=== PATIENT | female | born 1930 | race Caucasian/White ===

== ENCOUNTER → 2018-11-23 | Outpatient (CLI) | payer MEDICARE ==
[~2018-11-23] MED LIST: ACET-1600 PO; ALBU6.7H INH; AMLO-150 PO; ASPI-496 PO; ATOR40TA78 PO; BENZ1LOZ51 PO; BETA15CR5 TP; BUPR150T20 PO; CALC-471 PO; CALC1CAP8 PO; CARV-39 PO; CARV6.252 PO; CYAN1TAB29 PO; ESTR42.53 VG; FLAX100013 PO; FLUT10SP NS; FOLI-17 PO; FOLI0.8T2 PO; FURO20TA3 PO; GLUC15006 PO; INSU100I13 SC; INSU100V11 SC; IPRA4AER INH; IRON PO; MAGN400T7 PO; MAGNESIUM PO; MELA1TAB8 PO; MOME13HF2 INH; MULT-717 PO; NORT10CA PO; OMEGA Q PLUS PO; OMEP-110 PO; OXYB5TAB7 PO; OXYGEN NS; POLY17PO5 PO; PRAV40TA2 PO; SENN-25 PO; SERT100T32 PO; TRAZ-137 PO; [UNRECOGNIZED DRUG - OTHER] EACHEYE; alkalol NS; tylenol PO
[2018-11-23 15:10] LABS: BASOPHILS # (AUTO) 0.03 x10^3/uL (0-0.1); BASOPHILS % (AUTO) 0 % (0-1); EOSINOPHILS # (AUTO) 0.16 x10^3/uL (0-0.4); EOSINOPHILS % (AUTO) 2 % (1-7); HCT (SEDRATE) 38.9 % (34.6-47.8); LYMPHOCYTES # (AUTO) 1.44 x10^3/uL (1-3.4); LYMPHOCYTES % (AUTO) 21 % (22-44); MD NO; MEAN CORPUSCULAR HEMOGLOBIN 31.1 pg (27.0-34.8); MEAN CORPUSCULAR HGB CONC 32.1 g/dL (32.4-35.8); MONOCYTES # (AUTO) 0.55 x10^3/uL (0.2-0.8); MONOCYTES % (AUTO) 8 % (2-9); NEUTROPHILS # (AUTO) 4.57 x10^3/uL (1.8-6.8); NEUTROPHILS % (AUTO) 68 % (42-75); PLATELET COUNT 261 x10^3/uL (130-400); RED BLOOD COUNT 4.03 x10^6/uL (3.82-5.3); RED CELL DISTRIBUTION WIDTH 13.3 % (9.6-15.2)
[2018-11-23 15:21] LABS: CALCIUM 9.4 mg/dL (8.5-10.1); CHLORIDE 104 mmol/L (98-107)
[2018-11-23 15:26] LABS: ALANINE AMINOTRANSFERASE 18 U/L (12-78); ALBUMIN 3.5 g/dL (3.4-5.0); ALKALINE PHOSPHATASE 68 U/L (45-117); ANION GAP 6 mmol/L (5-15); BILIRUBIN,TOTAL 0.7 mg/dL (0.2-1.0); CREATININE 1.58 mg/dL (0.55-1.02); TOTAL PROTEIN 7.4 g/dL (6.4-8.2)
[2018-11-23 15:27] LABS: INTERNATIONAL NORMALIZED RATIO 0.98 (0.93-1.1); PROTHROMBIN TIME 10.3 Seconds (9.6-11.5)
[2018-11-23 15:31] LABS: CULTURE INDICATED? YES; MICROSCOPIC INDICATED
== END | disposition home or self-care (01) ==
LOC: STAR 13:26
PROVIDERS: ATTEND Orthopaedic Surgery Orthopaedic Surgery of the Spine
DX: T85.898A Other specified complication of other internal prosthetic devices, implants and grafts, initial encounter (principal); I25.2 Old myocardial infarction; Y83.8 Other surgical procedures as the cause of abnormal reaction of the patient, or of later complication, without mention of misadventure at the time of the procedure; Y92.89 Other specified places as the place of occurrence of the external cause
CPT/HCPCS: 36415; 71046; 80053; 81001; 85025; 85610; 85651; 85730; 87077; 87086; 87186; 93005

== ENCOUNTER 2018-12-04 07:18 | Inpatient (IN) | payer MEDICARE ==
[~2018-12-04] VITALS: Ht 165.1 cm; Wt 85.2 kg
[2018-12-04] MEDS ORDERED: VANCOMYCIN PER PHARMACY MC STA (08:53)
[2018-12-04 09:05] VITALS: BP 164/75
[2018-12-04] MEDS ORDERED: SODIUM CHLORIDE 0.9% 1,000 ML IV SCH (09:17)
[2018-12-04] MEDS ORDERED: PHARMACOKINETIC CONSULTATION MC ONE (09:30)
[2018-12-04] MEDS ORDERED: ACETAMINOPHEN 500 MG TABLET PO ONE (09:30)
[2018-12-04] MEDS ORDERED: VANCOMYCIN 1,900 MG in SODIUM CHLORIDE 0.9% 250 ML IV ONE (09:30)
[2018-12-04] MEDS ORDERED: TRANEXAMIC ACID 100 MG/ML, 10ML ONE (10:32)
[2018-12-04] MEDS ORDERED: KETOROLAC 60 MG/2 ML ONE (10:32)
[2018-12-04] MEDS ORDERED: MORPHINE SULFATE 4 MG/ML, 1ML ONE (10:33)
[2018-12-04] MEDS ORDERED: ROPIvacaine/PF 0.2%, 20 ML ONE (10:33)
[2018-12-04] MEDS ORDERED: EPINEPHRINE 1 MG/ML, 1ML ONE (10:33)
[2018-12-04] MEDS ORDERED: FENTANYL PF 100 MCG/2ML ONE ×2 (10:35→13:33)
[2018-12-04] MEDS ORDERED: VASOPRESSIN 20 UNIT/ML, 1ML ONE (11:02)
[2018-12-04] MEDS ORDERED: VANCOMYCIN 1,000 MG ONE (12:46)
[2018-12-04] MEDS ORDERED: ONDANSETRON 2MG/ML, 2ML ONE (12:59)
[2018-12-04] MEDS ORDERED: PROPOFOL 10 MG/ML, 20ML ONE (12:59)
[2018-12-04] MEDS ORDERED: GLYCOPYRROLATE 0.2MG/1ML, 5ML ONE (12:59)
[2018-12-04] MEDS ORDERED: ROCURONIUM 10MG/ML,5ML ONE (12:59)
[2018-12-04] MEDS ORDERED: SUCCINYLCHOLINE 20 MG/ML, 10ML ONE (12:59)
[2018-12-04] MEDS ORDERED: CEFAZOLIN 1,000 MG ONE (12:59)
[2018-12-04] MEDS ORDERED: DEXAMETHASONE 4 MG/ML, 1ML ONE (12:59)
[2018-12-04] MEDS ORDERED: NEOSTIGMINE 1 MG/ML, 10ML ONE (12:59)
[2018-12-04] MEDS ORDERED: OXYcodone 5 MG/5 ML ORAL.SOL UDC ONE (13:33)
[2018-12-04] MEDS ORDERED: PROMETHAZINE 25 MG/ML, 1ML ONE (13:36)
[2018-12-04] MEDS: FENTANYL PF 100 MCG/2ML IV PRN ×3 (13:47→14:03)
[2018-12-04] MEDS ORDERED: HYDROmorphone 2 MG/ML, 1ML ONE (13:58)
[2018-12-04] MEDS ORDERED: LABETALOL 5MG/ML, 20ML IV PRN (14:00)
[2018-12-04] MEDS ORDERED: hydrALAzine 20 MG/ML, 1ML IV PRN (14:00)
[2018-12-04] MEDS ORDERED: HYDROmorphone 2 MG/ML, 1ML IVPush PRN (14:00)
[2018-12-04] MEDS ORDERED: PROMETHAZINE 25 MG/ML, 1ML IV PRN (14:00)
[2018-12-04] MEDS ORDERED: METOPROLOL 1 MG/ML, 5ML IV PRN (14:00)
[2018-12-04] MEDS ORDERED: ONDANSETRON 2MG/ML, 2ML IV PRN (14:00)
[2018-12-04] MEDS ORDERED: OXYcodone 5 MG/5 ML ORAL.SOL UDC PO PRN (14:00)
[2018-12-04] MEDS ORDERED: DIAZEPAM 5 MG TABLET PO PRN (15:30)
[2018-12-04] MEDS ORDERED: METOCLOPRAMIDE 5 MG/ML, 2ML IVPush PRN (15:30)
[2018-12-04] MEDS ORDERED: DEXAMETHASONE 4 MG/ML, 1ML IVPush PRN (15:30)
[2018-12-04] MEDS ORDERED: KETOROLAC 30 MG/1 ML IVPush PRN (15:30)
[2018-12-04] MEDS ORDERED: ALUMINUM/MAG/SIMETHICONE 30 ML UDC PO PRN (15:30)
[2018-12-04] MEDS ORDERED: DIPHENHYDRAMINE 50 MG/ML, 1ML IVPush PRN (15:30)
[2018-12-04] MEDS ORDERED: ACETAMINOPHEN 500 MG TABLET PO PRN ×2 (15:30)
[2018-12-04] MEDS ORDERED: MORPHINE SULFATE 4 MG/ML, 1ML IVPush PRN (15:30)
[2018-12-04] MEDS ORDERED: MAGNESIUM HYDROXIDE 8%, 30ML UDC PO PRN (15:30)
[2018-12-04] MEDS ORDERED: ZOLPIDEM 5MG TABLET PO PRN (15:30)
[2018-12-04] MEDS: POTASSIUM CHLORIDE 20 MEQ in SODIUM CHLORIDE 0.9% 1,000 ML IV SCH (15:30)
[2018-12-04] MEDS ORDERED: PROMETHAZINE 25 MG/ML, 1ML IM PRN (15:30)
[2018-12-04] MEDS ORDERED: DIPHENHYDRAMINE 25 MG CAPSULE PO PRN (15:30)
[2018-12-04] MEDS ORDERED: LORazepam 2 MG/ML, 1ML IV PRN (15:30)
[2018-12-04] MEDS ORDERED: LORazepam 1MG TABLET PO PRN (15:30)
[2018-12-04] MEDS ORDERED: ONDANSETRON ODT 4 MG PO PRN (15:30)
[2018-12-04] MEDS ORDERED: METOCLOPRAMIDE 10MG TABLET PO PRN (15:30)
[2018-12-04] MEDS ORDERED: ONDANSETRON 2MG/ML, 2ML IVPush PRN (15:30)
[2018-12-04] MEDS ORDERED: POLYETHYLENE GLYCOL 17 GM PACKET PO PRN ×2 (15:30→16:00)
[2018-12-04] MEDS ORDERED: SENNA/DOCUSATE TABLET PO PRN (15:30)
[2018-12-04] MEDS ORDERED: PROMETHAZINE 25 MG SUPP PR PRN (15:30)
[2018-12-04] MEDS ORDERED: SCOPOLAMINE PATCH, 1.5MG PATCH.TD72 TD SCH (15:30)
[2018-12-04] MEDS ORDERED: BISACODYL 10 MG SUPP PR PRN (15:30)
[2018-12-04] MEDS ORDERED: SODIUM CHLORIDE 0.9% 1,000ML IVBOLUS PRN (16:00)
[2018-12-04] MEDS ORDERED: ARTIFICIAL TEARS 15 DROP/ML BOTTLE OP SCH ×2 (16:00)
[2018-12-04] MEDS: ALBUTEROL SULFATE 2.5 MG/3 ML NPPB SCH ×2 (16:00→22:00)
[2018-12-04] MEDS: OXYcodone/APAP 10/325MG TABLET PO PRN ×2 (16:59→18:02)
[2018-12-04] MEDS: CALCIUM/VITAMIN D3 250-125 TABLET PO SCH ×2 (16:59→21:40)
[2018-12-04] MEDS: CARVEDILOL 25 MG TABLET PO SCH (18:20)
[2018-12-04 18:21] VITALS: BP 170/96
[2018-12-04 20:44] VITALS: BP 147/88
[2018-12-04] MEDS ORDERED: BUPROPION SR 150 MG TABLET PO SCH (21:00)
[2018-12-04] MEDS: BUDESONIDE 0.5 MG/2 ML INHA NPPB SCH (21:00)
[2018-12-04] MEDS: CEFAZOLIN PMX 2GM/50ML 50 ML IVPB SCH (21:40)
[2018-12-04] MEDS: OMEGA-3/FISH OIL CAPSULE PO SCH (21:41)
[2018-12-04] MEDS: NORTRIPTYLINE 10 MG CAPSULE PO SCH (21:42)
[2018-12-04] MEDS: BUPROPION SR 150 MG TABLET PO SCH (21:42)
[2018-12-04] MEDS: ATORVASTATIN 40 MG TABLET PO SCH (21:43)
[2018-12-04] MEDS: DOCUSATE 100 MG CAPSULE PO SCH (21:48)
[2018-12-04] MEDS: SODIUM CHLORIDE FLUSH 10ML SYR IVF SCH (21:49)
[2018-12-04 23:55] VITALS: BP 157/92
[2018-12-05] MEDS: POTASSIUM CHLORIDE 20 MEQ in SODIUM CHLORIDE 0.9% 1,000 ML IV SCH ×3 (01:36→21:48)
[2018-12-05] MEDS: ALBUTEROL SULFATE 2.5 MG/3 ML NPPB SCH ×3 (04:00→22:00)
[2018-12-05 04:15] VITALS: BP 149/77
[2018-12-05 04:55] LABS: BASOPHILS # (AUTO) 0.01 x10^3/uL (0-0.1); BASOPHILS % (AUTO) 0 % (0-1); EOSINOPHILS % (AUTO) 0 % (1-7); LYMPHOCYTES # (AUTO) 1.05 x10^3/uL (1-3.4); LYMPHOCYTES % (AUTO) 8 % (22-44); MD NO; MEAN CORPUSCULAR HEMOGLOBIN 31.5 pg (27.0-34.8); MEAN CORPUSCULAR HGB CONC 32.1 g/dL (32.4-35.8); MONOCYTES # (AUTO) 0.73 x10^3/uL (0.2-0.8); MONOCYTES % (AUTO) 6 % (2-9); NEUTROPHILS # (AUTO) 10.89 x10^3/uL (1.8-6.8); NEUTROPHILS % (AUTO) 86 % (42-75); PLATELET COUNT 223 x10^3/uL (130-400); RED BLOOD COUNT 3.63 x10^6/uL (3.82-5.3); RED CELL DISTRIBUTION WIDTH 13.4 % (9.6-15.2)
[2018-12-05] MEDS: CEFAZOLIN PMX 2GM/50ML 50 ML IVPB SCH (05:06)
[2018-12-05] MEDS: CARVEDILOL 25 MG TABLET PO SCH ×2 (05:06→18:04)
[2018-12-05] MEDS: ASPIRIN 325 MG TABLET EC PO SCH ×2 (05:07→18:04)
[2018-12-05] MEDS: OMEPRAZOLE 20 MG CAPSULE.DR PO SCH (05:07)
[2018-12-05] MEDS: OXYcodone IR 5MG TABLET PO PRN ×2 (05:07→10:36)
[2018-12-05 06:42] VITALS: BP 109/66
[2018-12-05] MEDS: SODIUM CHLORIDE FLUSH 10ML SYR IVF SCH ×2 (09:00→20:36)
[2018-12-05] MEDS: BUDESONIDE 0.5 MG/2 ML INHA NPPB SCH ×2 (09:00→21:00)
[2018-12-05] MEDS: MAGNESIUM OXIDE 400 MG TABLET PO SCH (10:36)
[2018-12-05] MEDS: FOLIC ACID 1 MG TABLET PO SCH (10:36)
[2018-12-05] MEDS: OMEGA-3/FISH OIL CAPSULE PO SCH ×2 (10:36→20:35)
[2018-12-05] MEDS: CALCIUM/VITAMIN D3 250-125 TABLET PO SCH ×3 (10:36→20:35)
[2018-12-05] MEDS: MULTIVITAMINS/MINERALS TABLET PO SCH (10:36)
[2018-12-05] MEDS: DOCUSATE 100 MG CAPSULE PO SCH ×2 (10:36→20:35)
[2018-12-05] MEDS: PSYLLIUM PACKET PO SCH (10:36)
[2018-12-05] MEDS: FERROUS SULFATE 325 MG TABLET PO SCH (10:36)
[2018-12-05] MEDS: INSULIN GLARGINE 100 UNITS/ML, PEN SQ-INSULIN SCH (11:45)
[2018-12-05 12:25] VITALS: BP 109/55
[2018-12-05 18:01] VITALS: BP 137/63
[2018-12-05 20:12] VITALS: BP 124/48
[2018-12-05] MEDS: BUPROPION SR 150 MG TABLET PO SCH (20:34)
[2018-12-05] MEDS: NORTRIPTYLINE 10 MG CAPSULE PO SCH (20:34)
[2018-12-05] MEDS: ATORVASTATIN 40 MG TABLET PO SCH (20:35)
[2018-12-05] MEDS: OXYcodone/APAP 10/325MG TABLET PO PRN (23:01)
[2018-12-06 00:38] VITALS: BP 165/80
[2018-12-06] MEDS: OXYcodone/APAP 10/325MG TABLET PO PRN ×2 (02:09→06:11)
[2018-12-06] MEDS: ALBUTEROL SULFATE 2.5 MG/3 ML NPPB SCH ×2 (02:09→07:00)
[2018-12-06 05:04] LABS: BASOPHILS # (AUTO) 0.02 x10^3/uL (0-0.1); BASOPHILS % (AUTO) 0 % (0-1); EOSINOPHILS # (AUTO) 0.02 x10^3/uL (0-0.4); EOSINOPHILS % (AUTO) 0 % (1-7); LYMPHOCYTES % (AUTO) 15 % (22-44); MD NO; MEAN CORPUSCULAR HEMOGLOBIN 31.7 pg (27.0-34.8); MEAN CORPUSCULAR HGB CONC 32.6 g/dL (32.4-35.8); MEAN CORPUSCULAR VOLUME 97.2 fL (80-100); MEAN PLATELET VOLUME 7.9 fL (7.4-10.4); MONOCYTES # (AUTO) 1.24 x10^3/uL (0.2-0.8); MONOCYTES % (AUTO) 11 % (2-9); NEUTROPHILS # (AUTO) 8.43 x10^3/uL (1.8-6.8); NEUTROPHILS % (AUTO) 74 % (42-75); PLATELET COUNT 210 x10^3/uL (130-400); RED CELL DISTRIBUTION WIDTH 13.7 % (9.6-15.2)
[2018-12-06] MEDS: OMEPRAZOLE 20 MG CAPSULE.DR PO SCH (05:56)
[2018-12-06] MEDS: ASPIRIN 325 MG TABLET EC PO SCH (05:56)
[2018-12-06 05:57] VITALS: BP 166/75
[2018-12-06] MEDS: CARVEDILOL 25 MG TABLET PO SCH (05:57)
[2018-12-06 06:58] VITALS: BP 149/68
[2018-12-06] MEDS: BUDESONIDE 0.5 MG/2 ML INHA NPPB SCH (07:00)
[2018-12-06] MEDS: POTASSIUM CHLORIDE 20 MEQ in SODIUM CHLORIDE 0.9% 1,000 ML IV SCH (07:53)
[2018-12-06] MEDS ORDERED: ASPI-650 PO (08:19)
[2018-12-06] MEDS ORDERED: OXYC5CAP2 PO (08:23)
[2018-12-06] MEDS: SODIUM CHLORIDE FLUSH 10ML SYR IVF SCH (09:00)
[2018-12-06] MEDS: OMEGA-3/FISH OIL CAPSULE PO SCH (10:08)
[2018-12-06] MEDS: CALCIUM/VITAMIN D3 250-125 TABLET PO SCH (10:08)
[2018-12-06] MEDS: DOCUSATE 100 MG CAPSULE PO SCH (10:08)
[2018-12-06] MEDS: FERROUS SULFATE 325 MG TABLET PO SCH (10:08)
[2018-12-06] MEDS: FOLIC ACID 1 MG TABLET PO SCH (10:08)
[2018-12-06] MEDS: MULTIVITAMINS/MINERALS TABLET PO SCH (10:08)
[2018-12-06] MEDS: INSULIN GLARGINE 100 UNITS/ML, PEN SQ-INSULIN SCH (10:09)
[2018-12-06] MEDS: MAGNESIUM OXIDE 400 MG TABLET PO SCH (10:09)
[2018-12-06] MEDS: PSYLLIUM PACKET PO SCH (10:09)
== END 2018-12-06 13:12 | disposition home or self-care (01) | DRG 467 ==
LOC: ORIP 07:18 → 4NOR 14:49
PROVIDERS: ADMIT Orthopaedic Surgery Orthopaedic Surgery of the Spine; ATTEND Orthopaedic Surgery Orthopaedic Surgery of the Spine
PROC: 0SRC0J9 Replacement of Right Knee Joint with Synthetic Substitute, Cemented, Open Approach (ICD-10-PCS; 2018-12-04)
PROC: 3E0T3BZ Introduction of Anesthetic Agent into Peripheral Nerves and Plexi, Percutaneous Approach (ICD-10-PCS; 2018-12-04)
PROC: 0SPC0JZ Removal of Synthetic Substitute from Right Knee Joint, Open Approach (ICD-10-PCS; principal; 2018-12-04 11:00)
DX: T84.032A Mechanical loosening of internal right knee prosthetic joint, initial encounter (principal); I13.0 Hypertensive heart and chronic kidney disease with heart failure and stage 1 through stage 4 chronic kidney disease, or unspecified chronic kidney disease; T84.84XA Pain due to internal orthopedic prosthetic devices, implants and grafts, initial encounter; Y83.8 Other surgical procedures as the cause of abnormal reaction of the patient, or of later complication, without mention of misadventure at the time of the procedure; E78.5 Hyperlipidemia, unspecified; J44.9 Chronic obstructive pulmonary disease, unspecified; I25.10 Atherosclerotic heart disease of native coronary artery without angina pectoris; I50.9 Heart failure, unspecified; N18.3 Chronic kidney disease, stage 3 (moderate); E11.22 Type 2 diabetes mellitus with diabetic chronic kidney disease; G47.33 Obstructive sleep apnea (adult) (pediatric); F03.90 Unspecified dementia, unspecified severity, without behavioral disturbance, psychotic disturbance, mood disturbance, and anxiety; K21.9 Gastro-esophageal reflux disease without esophagitis; Y92.89 Other specified places as the place of occurrence of the external cause; I25.2 Old myocardial infarction; Z95.5 Presence of coronary angioplasty implant and graft; Z88.0 Allergy status to penicillin; Z91.048 Other nonmedicinal substance allergy status; Z91.040 Latex allergy status; Z86.73 Personal history of transient ischemic attack (TIA), and cerebral infarction without residual deficits
CPT/HCPCS: 36415; 82962; 85025; 94640; C1713; G0378; J0171; J0690; J1100; J1170; J1885; J2405; J2550; J2704; J2710; J2795; J3010; J3370; J7613; J7626; C1776; J0330; J1815; J2270; J7030; J7050